=== PATIENT | female | born 1985 | race Two or more races ===

== ENCOUNTER 2020-07-17 10:13 | Outpatient (CLI) | payer OTHER | END 2020-07-17 10:23 | disposition home or self-care (01) | LOC: RX STUDY 10:13 | PROVIDERS: ATTEND Obstetrics & Gynecology Reproductive Endocrinology | DX: N93.0 Postcoital and contact bleeding (principal) ==

== ENCOUNTER 2021-10-15 07:42 | Outpatient (CLI) | payer OTHER | END 2021-10-15 08:25 | disposition home or self-care (01) | LOC: LAB 07:42 | PROVIDERS: ATTEND Internal Medicine Hematology & Oncology | DX: R50.9 Fever, unspecified (principal) ==

== ENCOUNTER 2021-10-19 13:59 | Outpatient (CLI) | payer OTHER | END 2021-10-19 14:02 | disposition home or self-care (01) | LOC: LAB 13:59 | PROVIDERS: ATTEND Internal Medicine Hematology & Oncology | DX: U07.1 COVID-19 (principal); R05.8 Other specified cough ==

== ENCOUNTER 2024-05-19 09:40 | Outpatient (CLI) | payer OTHER ==
[~2024-05-19] VITALS: Ht 167.6 cm; Wt 71.7 kg
[2024-05-19] MEDS ORDERED: PRENATAL TABLE1 EAC1 PO (09:46)
[2024-05-19] MEDS ORDERED: ADULT LOW DOSE81 M1 PO (09:46)
== END 2024-05-19 13:01 | disposition home or self-care (01) ==
LOC: OBS/DEL 09:40
PROVIDERS: ATTEND Obstetrics & Gynecology Maternal & Fetal Medicine
DX: O26.893 Other specified pregnancy related conditions, third trimester (principal); Z3A.36 36 weeks gestation of pregnancy

== ENCOUNTER 2024-06-04 13:45 | Inpatient (IN) | payer OTHER ==
[~2024-06-04] VITALS: Ht 170.2 cm; Wt 74.4 kg
[~2024-06-04 13:45] MED LIST: ADULT LOW DOSE81 M1 PO; PRENATAL TABLE1 EAC1 PO
[2024-06-11] MEDS ORDERED: OXYTOCIN 20 UNITS/500ML RL PIGGYBAG IV ONE (13:37)
[2024-06-11 13:50] LABS: HEMATOCRIT 34.5 % (36.0-45.00); HEMOGLOBIN 11.8 g/dL (12.0-15.00); MEAN CELL VOLUME 94.2 fL (80.00-100.00); MEAN CORPUSCULAR HEMOGLOBIN 32.3 pg (27.00-32.0); MEAN CORPUSCULAR HGB CONC 34.3 g/dl (32.0-36.0); PLATELET COUNT 174 K/uL (150-450); RED BLOOD COUNT 3.66 M/uL (4.00-6.00); RED CELL DISTRIBUTION WIDTH 13.3 % (11.5-14.5)
[2024-06-11 13:54] LABS: PH,URINE 6.5 (5.0-8.0); URINE APPEARANCE Clear; URINE BILIRRUBIN Negative (NEGATIVE); URINE BLOOD Small; URINE COLOR Yellow; URINE GLUCOSE Negative (NEGATIVE); URINE KETONE Negative (NEGATIVE); URINE LEUKOCYTE Negative; URINE NITRATE Negative; URINE PROTEIN Trace (NEGATIVE); URINE UROBILINOGEN 0.2 E.U./dl
[2024-06-11 13:57] LABS: URINE BACTERIA 104.5 uL (0.0-1933); URINE EPITHELIAL CELLS 12.2 uL (0.0-38.8); URINE RBC 2.9 uL (0.0-20.8); URINE WBC 2.6 uL (0.0-23.2)
[2024-06-11] MEDS ORDERED: AMPICILLIN SODIUM 2,000 MG VIAL IV ONE (14:00)
[2024-06-11] MEDS ORDERED: OXYTOCIN 500 ML IV SCH (14:00)
[2024-06-11] MEDS ORDERED: MORPHINE SULFATE 4 MG/ML CARTRIDGE IV PRN (14:00)
[2024-06-11 14:12] LABS: INR < 0.93; PARTIAL THROMBOPLASTIN TIME 25.2 SECONDS (22.0-34.0); PROTHROMBIN TIME 9.9 SECONDS (9.0-11.5)
[2024-06-11 14:20] LABS: URINE CAST 0.45 uL (0.0-1.40)
[2024-06-11 14:45] LABS: ALBUMIN 2.9 gm/dL (3.4-5.0); BILIRUBIN TOTAL 0.27 mg/dL (0.3-1.2); CALCIUM 9.2 mg/dL (8.5-10.1); CREATININE SERUM 0.65 mg/dL (0.55-1.02); GFR 102.01; GLOBULINA 4.2 G/DL (2.4-3.5); POTASSIUM 4.11 mEq/L (3.5-5.1); TOTAL PROTEIN 7.1 gm/dL (6.4-8.2)
[2024-06-11] MEDS ORDERED: MORPHINE SULFATE 4 MG/ML CARTRIDGE IV NR (15:45)
[2024-06-11] MEDS ORDERED: AMPICILLIN SODIUM 1,000 MG VIAL IV SCH (17:00)
[2024-06-11] MEDS ORDERED: OXYTOCIN 20 UNITS/1000ML RL PIGGYBAG IV ONE (17:04)
[2024-06-11] MEDS ORDERED: ERYTHROMYCIN BASE 1 GM TUBE OP ONE ×2 (17:04→23:00)
[2024-06-11] MEDS ORDERED: CHLORHEXIDINE GLUCONATE 120 ML BOTTLE TOP ONE ×2 (17:05→23:00)
[2024-06-11] MEDS ORDERED: LIDOCAINE HCL 1% 10ML VIAL ONE (17:05)
[2024-06-11] MEDS ORDERED: IBUprofen 400 MG TABLET PO PRN (19:15)
[2024-06-11] MEDS ORDERED: OXYTOCIN 1,000 ML IV SCH (19:15)
[2024-06-11] MEDS ORDERED: OxyCODONE HCL/APAP UD (PERCOCET) PO PRN (19:15)
== END 2024-06-13 19:51 | disposition home or self-care (01) | DRG 807 ==
LOC: LDR 06-11 12:17 → OB/GYN 06-11 19:44
PROVIDERS: ADMIT Obstetrics & Gynecology Maternal & Fetal Medicine; ATTEND Obstetrics & Gynecology Maternal & Fetal Medicine
PROC: 10E0XZZ Delivery of Products of Conception, External Approach (ICD-10-PCS; principal; 2024-06-11)
PROC: 0KQM0ZZ Repair Perineum Muscle, Open Approach (ICD-10-PCS; 2024-06-11)
PROC: 4A1HXCZ Monitoring of Products of Conception, Cardiac Rate, External Approach (ICD-10-PCS; 2024-06-11)
DX: O70.1 Second degree perineal laceration during delivery (principal); Z37.0 Single live birth; Z3A.39 39 weeks gestation of pregnancy; Z20.822 Contact with and (suspected) exposure to COVID-19

== ENCOUNTER 2024-06-07 11:13 | Outpatient (CLI) | payer OTHER | END 2024-06-07 11:58 | disposition home or self-care (01) | LOC: NST 11:13 | PROVIDERS: ATTEND Obstetrics & Gynecology Gynecology | DX: Z34.83 Encounter for supervision of other normal pregnancy, third trimester (principal) ==